=== PATIENT | male | born 2000 | race Caucasian/White ===

== ENCOUNTER 2020-05-12 00:14 | Emergency (ER) | payer BC ==
[~2020-05-12] VITALS: Ht 180.3 cm; Wt 69.2 kg
[2020-05-12 00:26] VITALS: Ht 180.3 cm; Wt 69.2 kg
[2020-05-12 01:42] LABS: AMPHETAMINE QUAL UR NONE DETECTED (See below)
[2020-05-12 02:05] VITALS: BP 119/66
== END 2020-05-12 02:05 | disposition home or self-care (01) ==
LOC: ED 00:14
PROVIDERS: Emergency Medicine
DX: K29.70 Gastritis, unspecified, without bleeding (principal); N48.1 Balanitis
CPT/HCPCS: 87491; 87591